=== PATIENT | female | born 1940 | race Caucasian/White ===

== ENCOUNTER → 2017-01-12 | Outpatient (REF) | payer MEDICARE, OTHER ==
[2017-01-12 12:39] LABS: CALCIUM LEVEL 8.3 MG/DL (8.8-10.2); CREATININE FOR GFR 1.24 MG/DL (0.55-1.02); GLOMERULAR FILTRATION RATE 44.5 (>39); MAGNESIUM LEVEL 2.1 MG/DL (1.8-2.4); POTASSIUM SERUM 3.4 MEQ/L (3.5-5.1)
== END ==
LOC: M SFHCCLAY 08:33
PROVIDERS: ATTEND Family Medicine
DX: I10 Essential (primary) hypertension (principal); R25.2 Cramp and spasm
CPT/HCPCS: 80048; 83735; G0463

== ENCOUNTER → 2017-03-15 | Outpatient (REF) | payer MEDICARE, OTHER ==
[2017-03-15 12:07] LABS: BASO % 0.7 % (0.0-1.0); EOS # 0.1 K/mm3 (0.0-0.50); EOS % 2.3 % (0.0-3.0); LARGE UNSTAINED CELL # 0.1 K/mm3 (0.0-0.4); LARGE UNSTAINED CELL % 2.5 % (0.0-4.0); LYMPH # 1.2 K/mm3 (1.5-4.5); LYMPH % 24.2 % (24.0-44.0); MEAN CORPUSCULAR HEMOGLOBIN 29.5 pg (27.0-33.0); MEAN CORPUSCULAR VOLUME 86.8 fl (80.0-96.0); MONO # 0.3 K/mm3 (0.0-0.8); MONO % 6.1 % (0.0-5.0); NEUTROPHILS % 64.2 % (36.0-66.0); PLATELET COUNT, AUTOMATED 222 k/mm3 (150-450); RED CELL DISTRIBUTION WIDTH 12.7 % (11.5-14.5); WHITE BLOOD COUNT 4.6 K/mm3 (4.0-10.0)
[2017-03-15 13:52] LABS: ERYTHROCYTE SEDIMENTATION RATE 17 mm/hr (0-30)
== END ==
LOC: M LABDRAW1 11:46
PROVIDERS: ATTEND Orthopaedic Surgery
DX: M25.551 Pain in right hip (principal)

== ENCOUNTER 2017-08-11 07:59 | Day surgery (SDC) | payer MEDICARE, OTHER ==
[~2017-08-11] VITALS: Ht 165.1 cm; Wt 74.2 kg
[~2017-08-11 07:59] MED LIST: ASPI81TA85 PO; ATEN25TA PO; ATOR1TAB21 PO; CVS20TAB PO; FLON1SPR; HYDR12.55 PO; LOSA50TA20 PO; MAGN1TAB25 PO; NORV5TAB PO; POTA20TA PO; VITA1CAP40 PO
[2017-08-11] MEDS ORDERED: LR 1,000 ML IV ONE (08:15)
[2017-08-11] MEDS ORDERED: ceFAZolin 1GM INJ (J0690) As Ordered ONE (11:11)
[2017-08-11] MEDS ORDERED: LIDOCAINE 2% INJ 100 MG/5 ML SDV (FOR ANES.) As Ordered ONE (12:21)
[2017-08-11] MEDS ORDERED: GLYCOPYRROLATE INJ 0.2 MG/ML 2 ML VIAL As Ordered ONE (12:21)
[2017-08-11] MEDS ORDERED: PROPOFOL 200 MG/20 ML VIAL As Ordered ONE (12:21)
[2017-08-11] MEDS ORDERED: MIDAZOLAM INJ 2 MG/2 ML VIAL (J2250) As Ordered ONE (12:21)
[2017-08-11] MEDS ORDERED: fentaNYL 100 MCG/2 ML INJECTION (J3010) As Ordered ONE ×3 (12:21→15:14)
[2017-08-11] MEDS ORDERED: ONDANSETRON 4MG/2ML VIAL (J2405) As Ordered ONE (12:38)
[2017-08-11] MEDS ORDERED: ACETAMINOPHEN 500 MG TAB PO SCH (14:00)
[2017-08-11] MEDS ORDERED: BUPIVACAINE HCL 0.5% 30 ML VIAL As Ordered ONE (14:41)
[2017-08-11] MEDS: fentaNYL 100 MCG/2 ML INJECTION (J3010) IV PRN ×4 (15:17→16:00)
[2017-08-11] MEDS ORDERED: LR 1,000 ML IV SCH (15:30)
[2017-08-11] MEDS ORDERED: traMADol 50 MG TAB PO PRN ×2 (15:30→19:45)
[2017-08-11] MEDS ORDERED: NS 1,000 ML IV SCH (15:30)
[2017-08-11] MEDS ORDERED: ONDANSETRON 4MG/2ML VIAL (J2405) IV PRN (15:30)
[2017-08-11] MEDS ORDERED: METOCLOPRAMIDE INJ 10MG/2ML VIAL (J2765) IV PRN (15:30)
[2017-08-11] MEDS ORDERED: PERCOCET 5MG/325MG TAB PO PRN (15:30)
[2017-08-11] MEDS ORDERED: MEPERIDINE INJ 25 MG/ML VIAL (J2175) IV PRN (15:30)
--- NOTE | 2017-08-11 15:42 | REP ---
Intraoperative fluoroscopic views of the great toe: A series of nine films is performed during internal fixation of the great toe metatarsal head and surgical fusion of the MTP articulation. Final films demonstrate the hardware and skeletal structures to be in satisfactory positions alignment. No fluoroscopic exposure time is documented. Signed by Oscar Castanon MD 08/11/2017 03:33 P
[2017-08-11 20:38] VITALS: BP 135/63
[2017-08-11] MEDS ORDERED: ATORVASTATIN 20 MG TAB PO SCH (21:00)
[2017-08-11] MEDS: MAGNESIUM OXIDE 400 MG TAB (MAG-OX) PO SCH (22:10)
[2017-08-11] MEDS: ACETAMINOPHEN TAB 650MG DOSE (2X325MG) PO PRN (22:11)
[2017-08-12 02:00] VITALS: BP 106/57
[2017-08-12 06:00] VITALS: BP 118/60
[2017-08-12] MEDS: ACETAMINOPHEN TAB 650MG DOSE (2X325MG) PO PRN (06:26)
[2017-08-12] MEDS: SLF 3 ML SYR IV SCH ×2 (06:26)
[2017-08-12] MEDS: MAGNESIUM OXIDE 400 MG TAB (MAG-OX) PO SCH (08:44)
[2017-08-12] MEDS ORDERED: OMEPRAZOLE 20 MG CAP PO SCH (09:00)
[2017-08-12] MEDS ORDERED: LOSARTAN 50 MG TAB PO SCH (09:00)
[2017-08-12] MEDS ORDERED: hydroCHLOROthiazide 12.5 MG CAPSULE PO SCH (09:00)
[2017-08-12] MEDS ORDERED: POTASSIUM CHLORIDE 10 MEQ SR TABLET PO SCH (09:00)
[2017-08-12] MEDS ORDERED: ASPIRIN 81 MG CHEW TABLET PO SCH (09:00)
[2017-08-12 10:00] VITALS: BP 126/59
[2017-08-12] MEDS ORDERED: ULTR50TA8 PO (10:59)
[2017-08-13] MEDS ORDERED: ATENOLOL 25 MG TAB PO SCH (09:00)
--- NOTE | 2017-08-17 07:56 | RO ---
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 PROCEDURE: First metatarsal phalangeal joint arthrodesis. SURGEON: Dr. Joanna Hubbard PLATING FOREMAN: ROSSY Ruiz ANESTHESIA: General endotracheal. ESTIMATED BLOOD LOSS: Approximately 50 mL. IMPLANTS: [employer] First MTP plate with associated screws. COMPLICATIONS: None. CONDITION: Stable to recovery. INDICATIONS: Juanita Mena is a 77-year-old female who has suffered from pain in her left great toe from a hallux valgus deformity with first MTP arthritis. Risks and benefits of surgery were discussed with the patient in detail and informed consent was obtained in the office. The patient elected for surgical management of her forefoot deformity. DESCRIPTION OF PROCEDURE: The patient was met in the preoperative holding area where her left lower extremity was marked as the correct operative site. She was then taken to the operating room where she was transfused to the operating room table in a supine position. She received preoperative antibiotics. A well padded tourniquet was placed on her left thigh. Her bony prominences were well padded. A bump was placed under the ipsilateral hip. After an official time out was held, an incision was made directly over the first MTP joint. The extensor hallucis longus tendon was identified and retracted laterally. The capsule was incised and the first MTP joint was identified. There appeared to be significant cartilage loss throughout the metatarsal head. The remaining cartilage was debrided using curets and a rongeur. The metatarsal head was fenestrated using a 0.62 K-wire and small [place] osteotome. Following this, the proximal phalanx was debrided of any remaining cartilage and similarly fenestrated with a 0.62 K-wire and [place] osteotome. The wound was irrigated copiously. Demineralized bone matrix (DBX) was applied to the joint to help with the fusion process. The joint was pinned in a satisfactory position using 0.62 K-wires. This was in about 10 degrees of valgus and slight dorsiflexion. I was able to place one finger under the IP joint. Alignment was checked multiple times using a flat plate under the foot to simulate weight bearing. The toe was found to be in satisfactory position. At this point, a 3.0 mm headed lag screw was placed across the joint. This was found to have good compression. A First MTP plate was selected and secured distally to the proximal phalanx using locking screws. A compression screw was placed eccentrically through the proximal aspect of the plate in the metatarsal. This allowed for good further compression across the joint. Remaining holes were filled with locking screws in the metatarsal. Following this, a small stab incision was made over the lateral aspect of the heel. Using the 3.5 mm drill guide, three plugs of cancellous bone were removed. A small bur was used to make two troughs in the medial and lateral aspect of the first MTP joint. The bone graft was applied to these troughs. The calcaneus incision was irrigated and was closed using a single #3-0 horizontal mattress with nylon suture. Multiple x-rays of the forefoot were taken and the toe was found to be in satisfactory position. The capsule was closed using #2-0 Vicryl and subcutaneous tissues were closed using #3-0 Vicryl. The skin was closed using #3-0 nylon. The patient was placed in a well padded splint. She was extubated and transferred to the recovery room in stable condition. PLAN: The patient will be nonweight bearing for a total of six weeks. She will be on aspirin for deep vein thrombosis (DVT) prophylaxis. I will see her back in 2 weeks for a wound check and likely removal of her sutures.
== END 2017-08-12 12:20 | disposition home or self-care (01) ==
LOC: M SDC 07:59 → M MS5PR 20:40 → M SDC 08-12 12:20
PROVIDERS: ATTEND Orthopaedic Surgery
DX: M20.12 Hallux valgus (acquired), left foot (principal); M19.072 Primary osteoarthritis, left ankle and foot; I12.9 Hypertensive chronic kidney disease with stage 1 through stage 4 chronic kidney disease, or unspecified chronic kidney disease; E78.5 Hyperlipidemia, unspecified; I34.0 Nonrheumatic mitral (valve) insufficiency; K57.32 Diverticulitis of large intestine without perforation or abscess without bleeding; J32.9 Chronic sinusitis, unspecified; N18.3 Chronic kidney disease, stage 3 (moderate); K21.9 Gastro-esophageal reflux disease without esophagitis; F32.9 Major depressive disorder, single episode, unspecified; M54.5 Low back pain; R51 Headache; M21.612 Bunion of left foot; Z88.5 Allergy status to narcotic agent; Z88.6 Allergy status to analgesic agent; Z88.8 Allergy status to other drugs, medicaments and biological substances; Z79.899 Other long term (current) drug therapy; Z79.82 Long term (current) use of aspirin; Z85.038 Personal history of other malignant neoplasm of large intestine
CPT/HCPCS: 28750; 73660; 96374; 96375; C1713; C1762; J0690; J2250; J2405; J3010

== ENCOUNTER → 2019-06-26 | Outpatient (REF) | payer MEDICARE, OTHER ==
[~2019-06-26] MED LIST changes: -CVS20TAB PO; +KLOR20TA42 PO; -LOSA50TA20 PO; +LOSA50TA88 PO; -MAGN1TAB25 PO; +MAGN1TAB26 PO; +OMEP20TA9 PO; -POTA20TA PO; +ULTR50TA8 PO; -VITA1CAP40 PO; +VITA50005 PO
[2019-06-26 18:49] LABS: ALBUMIN 3.6 GM/DL (3.2-5.2); BILIRUBIN,DIRECT 0.2 MG/DL (0.0-0.2); BILIRUBIN,TOTAL 0.8 MG/DL (0.2-1.0); TOTAL PROTEIN 6.5 GM/DL (6.4-8.2)
== END ==
LOC: M LAB REF 18:27
PROVIDERS: ATTEND Nurse Practitioner Family
DX: R82.2 Biliuria (principal)

== ENCOUNTER 2019-08-19 10:01 | Day surgery (SDC) | payer MEDICARE, OTHER ==
[~2019-08-19] VITALS: Ht 165.1 cm; Wt 76.7 kg
[~2019-08-19 10:01] MED LIST changes: +ACETAMINOPHEN 325 MG TAB PO PRN; +BALANCED SALT IRRIGATION SOLUTION 500ML BAG (FOR OR EYE MACHINE) As Ordered ONE; +CYCLOPENTOLATE 2% OPHTH SOLN 2ML BTL OS ONE; +HEALON DUET PRO(HEALON 10MG/ML 0.55ML & HEALON ENDOCOAT 30MG/ML 0.85ML) As Ordered ONE; +LIDOCAINE 1% SDV 5 ML VIAL As Ordered ONE; +LIDOCAINE 3.5 % 1ML OPHTH TOPICAL GEL OU ONE; +MIDAZOLAM INJ 2 MG/2 ML VIAL (J2250) As Ordered ONE; +OFLOXACIN 0.3 % (OCUFLOX) OPTH SOL 5ML OS ONE; +PHENYLEPHRINE 2.5% OPHTH SOL 2ML OS ONE; +PHENYLEPHRINE HCL 10 % OPHTH. SOL 5ML OS PRN; +POVIDONE-IODINE 5% OPHTH PREP SOL 30ML As Ordered ONE; +PROPARACAINE 0.5% OPHTH SOL 15ML OS PRN; +TROPICAMIDE 1% OPHTH SOLN 2ML OS ONE; +fentaNYL 100 MCG/2 ML INJECTION (J3010) As Ordered ONE
[2019-08-19] MEDS ORDERED: CEFUROXIME 1MG/0.1ML INTRACAMERAL INJ As Ordered ONE ×2 (12:34→12:57)
[2019-08-19] MEDS ORDERED: AcetaZOLAMIDE 500 MG ER CAP PO ONE (14:00)
[2019-08-19] MEDS ORDERED: KETOROLAC 0.5% OPHTH SOLN OS ONE (14:00)
[2019-08-19] MEDS ORDERED: TRIMETHOBENZAMIDE 300 MG CAP PO PRN (14:00)
[2019-08-19 14:15] VITALS: BP 177/79
[2019-08-19] MEDS ORDERED: ONDANSETRON 4MG/2ML VIAL (J2405) IV PRN (14:15)
--- NOTE | 2019-08-20 07:44 | RO ---
DATE OF PROCEDURE: 08/19/2019 PREPROCEDURE DIAGNOSIS: Age related nuclear cataract left eye. POSTPROCEDURE DIAGNOSIS: Age related nuclear cataract left eye. PROCEDURE: Phacoemulsification and posterior chamber intraocular lens implantation. The lens used was AU00T0, 15.5 diopters. SURGEON: Ondina Pratt MD HOLE DIGGER TRUCK DRIVER: ANESTHESIA: Topical with sedation. DESCRIPTION OF PROCEDURE: The patient was prepped and draped in the usual fashion. A lid speculum was placed between the lids. The eye was fixated. A stab incision was made to the anterior chamber, and 1% nonpreserved lidocaine was instilled. Then, viscoelastic was instilled. The eye was re-fixated. A 2.75 mm sapphire keratome was used to make a clear corneal temporal limbal incision. Capsulorrhexis was begun with a 30-gauge bent needle and then carried out in a circular fashion with capsulorrhexis forceps. The lens was hydrodissected, and then the phacoemulsification unit was used to make a groove in the nucleus in two meridians. The nucleus was then cracked into four quadrants. Each quadrant was removed with the phacoemulsification unit. Any remaining cortex was removed with the irrigation and aspiration (I and A) unit. Capsular bag was refilled with viscoelastic. A posterior chamber intraocular lens was placed in the capsular bag without difficulty. Any remaining viscoelastic was removed with the I and A unit. The wound was hydrated, and Miochol and cefuroxime were instilled into the anterior chamber. The patient tolerated the procedure well and went to the recovery room in stable condition.
== END 2019-08-19 14:35 | disposition home or self-care (01) ==
LOC: M SDC 10:01
PROVIDERS: ATTEND Ophthalmology
DX: H25.12 Age-related nuclear cataract, left eye (principal); I12.9 Hypertensive chronic kidney disease with stage 1 through stage 4 chronic kidney disease, or unspecified chronic kidney disease; N18.3 Chronic kidney disease, stage 3 (moderate); E78.00 Pure hypercholesterolemia, unspecified; M12.9 Arthropathy, unspecified; K21.9 Gastro-esophageal reflux disease without esophagitis; I34.8 Other nonrheumatic mitral valve disorders; G43.909 Migraine, unspecified, not intractable, without status migrainosus; J32.9 Chronic sinusitis, unspecified; Z88.5 Allergy status to narcotic agent; Z88.6 Allergy status to analgesic agent; Z88.8 Allergy status to other drugs, medicaments and biological substances; Z79.899 Other long term (current) drug therapy; Z79.82 Long term (current) use of aspirin; Z85.038 Personal history of other malignant neoplasm of large intestine; Z86.2 Personal history of diseases of the blood and blood-forming organs and certain disorders involving the immune mechanism; Z87.19 Personal history of other diseases of the digestive system; Z98.41 Cataract extraction status, right eye
CPT/HCPCS: 66984; 92015; J2250; J3010; V2632

== ENCOUNTER → 2020-08-03 | Outpatient (CLI) | payer MEDICARE, OTHER, MEDICAID ==
[~2020-08-03] MED LIST changes: -ACETAMINOPHEN 325 MG TAB PO PRN; -ASPI81TA85 PO; +ASPI81TA86 PO; -BALANCED SALT IRRIGATION SOLUTION 500ML BAG (FOR OR EYE MACHINE) As Ordered ONE; -CYCLOPENTOLATE 2% OPHTH SOLN 2ML BTL OS ONE; -HEALON DUET PRO(HEALON 10MG/ML 0.55ML & HEALON ENDOCOAT 30MG/ML 0.85ML) As Ordered ONE; -LIDOCAINE 1% SDV 5 ML VIAL As Ordered ONE; -LIDOCAINE 3.5 % 1ML OPHTH TOPICAL GEL OU ONE; -MIDAZOLAM INJ 2 MG/2 ML VIAL (J2250) As Ordered ONE; -OFLOXACIN 0.3 % (OCUFLOX) OPTH SOL 5ML OS ONE; -PHENYLEPHRINE 2.5% OPHTH SOL 2ML OS ONE; -PHENYLEPHRINE HCL 10 % OPHTH. SOL 5ML OS PRN; -POVIDONE-IODINE 5% OPHTH PREP SOL 30ML As Ordered ONE; -PROPARACAINE 0.5% OPHTH SOL 15ML OS PRN; -TROPICAMIDE 1% OPHTH SOLN 2ML OS ONE; -fentaNYL 100 MCG/2 ML INJECTION (J3010) As Ordered ONE
--- NOTE | 2020-08-03 09:26 | REP ---
INDICATION: R05, COUGH. COMPARISON: 12/20/2010 TECHNIQUE: Two views FINDINGS: Of the lung rodriguez are well inflated. Is no pleural effusion, lateral pleural thickening acute infiltrate or parenchymal mass. I see no apical pleural scarring. Heart is not enlarged. There is no specific chamber enlargement, vascular redistribution or pulmonary edema. Minimally calcified aortic arch without aneurysm airway intact some degenerative changes in the spine with some mild dextroconvex curvature upper thoracic region and a levorotatory curvature of the upper lumbar spine no spine compression deformities or focal lesions. Some degenerative changes about the right shoulder and AC joint IMPRESSION: 1. Lungs well inflated and clear with no acute cardiopulmonary disease. <Electronically signed by Remy Man > 08/03/20 [id number]
== END ==
LOC: M CLY 08:22
PROVIDERS: ATTEND Family Medicine
DX: R05 Cough (principal); Z23 Encounter for immunization
CPT/HCPCS: 71046; 90682; G0008; G0463

== ENCOUNTER → 2021-03-10 | Outpatient (CLI) | payer MEDICARE, OTHER ==
[~2021-03-10] MED LIST changes: +OMEP20TA2 PO; -OMEP20TA9 PO
--- NOTE | 2021-03-10 10:07 | REP ---
INDICATION: S99.921A INJURY OF RIGHT FOOT. COMPARISON: None. TECHNIQUE: Four views FINDINGS: There is a fracture involving the distal diaphysis of the 5th metatarsal with slight medial angulation. The bones are demineralized. Degenerative changes are seen throughout the foot and imaged portion of the ankle. There is a type 2 os naviculare. There is a mild to moderate hallux valgus deformity. Plantar and retrocalcaneal heel spurs are present. IMPRESSION: Fracture of the 5th metatarsal as described above. Chronic changes and other findings as described above. <Electronically signed by Francesco Stubbs > 03/10/21 [id number]
== END ==
LOC: M CLY 09:36
PROVIDERS: ATTEND Physician Assistant
DX: S92.351A Displaced fracture of fifth metatarsal bone, right foot, initial encounter for closed fracture (principal); W19.XXXA Unspecified fall, initial encounter; Y92.9 Unspecified place or not applicable; Y99.9 Unspecified external cause status; M77.31 Calcaneal spur, right foot
CPT/HCPCS: 73630; G0463

== ENCOUNTER → 2021-07-05 | Outpatient (REF) | payer MEDICARE, OTHER ==
[~2021-07-05] MED LIST changes: -KLOR20TA42 PO; +POTA-141 PO
== END ==
LOC: M LAB REF 12:47
PROVIDERS: ATTEND Internal Medicine Nephrology
DX: E83.42 Hypomagnesemia (principal)

== ENCOUNTER → 2023-10-27 | Outpatient (REF) | payer MEDICARE, OTHER ==
[~2023-10-27] MED LIST changes: +LOSA50TA28 PO; -LOSA50TA88 PO
[2023-10-27 12:08] LABS: CREATININE FOR GFR 1.15 MG/DL (0.55-1.30); GLOMERULAR FILTRATION RATE 47.9 (>32); POTASSIUM SERUM 3.8 MMOL/L (3.5-5.1)
== END ==
LOC: M SFHCCLAY 08:52
PROVIDERS: ATTEND Family Medicine
DX: I12.9 Hypertensive chronic kidney disease with stage 1 through stage 4 chronic kidney disease, or unspecified chronic kidney disease (principal)

== ENCOUNTER → 2023-11-06 | Outpatient (REF) | payer MEDICARE, OTHER ==
[2023-11-06 12:02] LABS: BASO % 0.8 % (0.0-1.0); EOS # 0.1 10^3/uL (0.0-0.5); EOS % 2.8 % (0.0-3.0); HEMATOCRIT 39.9 % (36.0-47.0); HEMOGLOBIN 12.9 g/dl (12.0-15.5); LYMPH # 1.3 10^3/uL (1.5-5.0); LYMPH % 26.3 % (24.0-44.0); MEAN CORPUSCULAR HEMOGLOBIN 29.5 pg (27.0-33.0); MEAN CORPUSCULAR HGB CONC 32.3 g/dl (32.0-36.5); MEAN CORPUSCULAR VOLUME 91.3 fl (80.0-96.0); MONO # 0.4 10^3/uL (0.0-0.8); MONO % 7.1 % (2.0-8.0); NEUTROPHILS # 3.2 10^3/uL (1.5-8.5); NEUTROPHILS % 62.8 % (36.0-66.0); PLATELET COUNT, AUTOMATED 236 10^3/uL (150-450); RED BLOOD COUNT 4.37 10^6/uL (4.00-5.40); WHITE BLOOD COUNT 5.1 10^3/uL (4.0-10.0)
[2023-11-06 12:10] LABS: ERYTHROCYTE SEDIMENTATION RATE 11 mm/hr (0-30)
[2023-11-06 12:40] LABS: ALBUMIN 3.7 G/DL (3.2-5.2); ALKALINE PHOSPHATASE 93 U/L (46-116); ALT/SGPT 13 U/L (7.0-40); AST/SGOT 15 U/L (<34); BILIRUBIN,TOTAL 1.2 MG/DL (0.3-1.2); BLOOD UREA NITROGEN 23 MG/DL (9-23); CARBON DIOXIDE LEVEL 28 MMOL/L (20-31); CHLORIDE LEVEL 107 MMOL/L (98-107); CREATININE FOR GFR 1.11 MG/DL (0.55-1.30); FOLATE 15.7 NG/ML (>5.4); GLOMERULAR FILTRATION RATE 49.9 (>32); GLUCOSE, FASTING 89 MG/DL (74-106); POTASSIUM SERUM 3.7 MMOL/L (3.5-5.1); RHEUMATOID FACTOR QUANT < 3.5 IU/ML (<14); SODIUM LEVEL 141 MMOL/L (136-145); THYROID STIMULATING HORMONE 2.734 uIU/ML (0.55-4.78); TOTAL PROTEIN 6.8 G/DL (5.7-8.2); VITAMIN B12 LEVEL 216 PG/ML (211-911)
[2023-11-07 15:12] LABS: MAGNESIUM LEVEL 1.9 MG/DL (1.8-2.4)
== END ==
LOC: M LABDRAWC 11:34
PROVIDERS: ATTEND Psychiatry & Neurology Neurology
DX: F09 Unspecified mental disorder due to known physiological condition (principal); E07.9 Disorder of thyroid, unspecified

== ENCOUNTER → 2025-02-17 | Outpatient (CLI) | payer MEDICARE, OTHER ==
[~2025-02-17] MED LIST changes: +OMEP-611 PO; -OMEP20TA2 PO
== END ==
LOC: M CLY 13:11
PROVIDERS: ATTEND Family Medicine
DX: M79.651 Pain in right thigh (principal)